=== PATIENT | female | born 1990 | race Caucasian/White ===

== ENCOUNTER 2018-06-11 07:11 | Emergency (ER) | payer MEDICAID ==
[2018-06-11] MEDS ORDERED: Ondansetron 4 MG/2 ML SDV IVPUSH ONE (07:38)
[2018-06-11] MEDS ORDERED: HYDROmorphone 0.5 MG/0.5 ML SYRINGE IVPUSH STA (07:40)
[2018-06-11] MEDS ORDERED: Sodium Chloride 0.9% 1,000 ML IV SCH (07:45)
--- NOTE | 2018-06-11 07:47 | EDM.PDOC ---
ED HPI GENERAL MEDICAL PROBLEM - General Chief Complaint: Abdominal Pain Stated Complaint: L SIDE PAIN Time Seen by Provider: 06/11/18 07:29 Source of Information: Reports: Patient History Limitations: Reports: No Limitations - History of Present Illness INITIAL COMMENTS - FREE TEXT/NARRATIVE: The patient states that she was woken up around 04:00 this morning with sharp/ throbbing left lower quadrant abdominal pain. The pain radiates up to her lower left ribs. It waxes and wanes. She has not identified any modifiers. No associated fever, chills, nausea, vomiting, constipation, diarrhea, or urinary symptoms. The patient notes that she started her menstrual period yesterday. The patient states that she had similar symptoms more than a year ago, but that they resolved after a few hours, the patient did not seek medical evaluation. 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 The patient's last oral solid food was around 21:30 last night. The patient does not have a PCP in this area. Left Lower Abdomen Pain Score (Numeric/FACES): 9 - Related Data Allergies Allergy/AdvReac Type Severity Reaction Status Date / Time avacado Allergy Facial Uncoded 06/11/18 07:28 Swelling Home Meds: Home Meds . 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: - Past Surgical History HEENT Surgical History: Reports: Oral Surgery (wisdom teeth extraction) GI Surgical History: Reports: Other (See Below) (Anal fissure repair) Female Surgical History: Reports: Section (x 1), Tubal Ligation Social & Family History - Tobacco Use Smoking Status *Q: Former Smoker Years of Tobacco use: 10 Packs/Tins Daily: 1 Month/Year Tobacco Last Used: Quit 2014 - Caffeine Use Caffeine Use: Reports: None - Alcohol Use Alcohol Use History: Yes Alcohol Use Frequency: Socially - Recreational Drug Use Recreational Drug Use: Yes Drug Use in Last 12 Months: Yes Recreational Drug Type: Reports: Marijuana/Hashish (last smoked early May 2018) - Living Situation & Occupation Living situation: Reports: Single, with Family Occupation: Unemployed ED ROS GENERAL - Review of Systems Review Of Systems: ROS reveals no pertinent complaints other than HPI. ED EXAM, GI/ABD - Physical Exam Exam: See Below Exam Limited By: No Limitations General Appearance: Alert, WD/WN, No Apparent Distress Eyes: Bilateral: Normal Appearance, EOMI Ears: Normal External Exam, Hearing Grossly Normal Nose: Normal Inspection, No Blood Throat/Mouth: Normal Inspection, Normal Lips, Normal Voice, No Airway Compromise Head: Atraumatic, Normocephalic Neck: Normal Inspection, Full Range of Motion Respiratory/Chest: No Respiratory Distress, Lungs Clear, Normal Breath Sounds, No Accessory Muscle Use Cardiovascular: Normal Peripheral Pulses, Regular Rate, Rhythm, No Edema, No Gallop, No JVD, No Murmur, No Rub GI/Abdominal Exam: Normal Bowel Sounds, Soft, No Organomegaly, No Distention, No Abnormal Bruit, No Mass, Pelvis Stable, Tender (Primarily in the left upper quadrant, less to the far left side of the abdomen and lower left quadrant. Nontender elsewhere.) (Female) Exam: Deferred Rectal (Female) Exam: Deferred Back Exam: Normal Inspection, Full Range of Motion, CVA Tenderness (L). No: CVA Tenderness (R) Extremities: Normal Inspection, Normal Range of Motion, No Pedal Edema, Normal Capillary Refill Neurological: Alert, Oriented, Normal Cognition, No Motor/Sensory Deficits Psychiatric: Normal Affect Skin Exam: Warm, Dry, Intact, Normal Color, No Rash Course - Vital Signs Last Recorded V/S: Last Vital Signs Temp 36.9 C 06/11/18 07:21 Pulse 101 H 06/11/18 07:21 Resp 16 06/11/18 07:21 BP 123/84 06/11/18 07:21 Pulse Ox 100 06/11/18 07:21 - Orders/Labs/Meds Orders: Active Orders 24 hr Category Date Time Status Abdomen Pelvis w Cont [CT] Stat Exams 06/11/18 07:38 Taken CULTURE URINE [RM] Stat Lab 06/11/18 08:15 Received HCG QUALITATIVE,URINE [URCHEM] Stat Lab 06/11/18 08:17 Ordered UA W/MICROSCOPIC [URIN] Stat Lab 06/11/18 08:15 Ordered Sodium Chloride 0.9% [Normal Saline] 1,000 ml Med 06/11/18 07:45 Active IV ASDIRECTED Sodium Chloride 0.9% [Saline Flush] Med 06/11/18 08:58 Active 10 ml FLUSH ONETIME PRN Medication Orders Sodium Chloride (Normal Saline) 1,000 mls @ 150 mls/hr IV ASDIRECTED ZAIDA Last Admin: 06/11/18 07:58 Dose: 150 mls/hr Sodium Chloride (Saline Flush) 10 ml FLUSH ONETIME PRN PRN Reason: IV FLUSH Last Admin: 06/11/18 09:08 Dose: 10 ml Labs: Laboratory Tests 06/11/18 06/11/18 06/11/18 Range/Units 07:50 07:50 08:15 WBC 8.24 (3.98-10.04) K/mm3 RBC 4.78 (3.98-5.22) M/mm3 Hgb 14.0 (11.2-15.7) gm/L Hct 42.1 (34.1-44.9) % MCV 88.1 (79.4-94.8) fl MCH 29.3 (25.6-32.2) pg MCHC 33.3 (32.2-35.5) g/dl RDW Std Deviation 45.6 (36.4-46.3) fL Plt Count 250 (182-369) K/mm3 MPV 10.7 (9.4-12.3) fl Neutrophils % (Manual) 76 H (40-60) % Band Neutrophils % 2 (0-10) % Lymphocytes % (Manual) 14 L (20-40) % Atypical Lymphs % 0 % Monocytes % (Manual) 6 (2-10) % Eosinophils % (Manual) 2 (0.7-5.8) % Basophils % (Manual) 0 L (0.1-1.2) Platelet Estimate Adequate RBC Morph Comment Normal Sodium 139 (136-145) mEq/L Potassium 3.9 (3.5-5.1) mEq/L Chloride 104 (98-107) mEq/L Carbon Dioxide 24 (21-32) mEq/L Anion Gap 14.9 (5-15) BUN 13 (7-18) mg/dL Creatinine 0.8 (0.55-1.02) mg/dL Est Cr Clr Drug Dosing TNP Estimated GFR (MDRD) > 60 (>60) mL/min BUN/Creatinine Ratio 16.3 (14-18) Glucose 102 (74-106) mg/dL Calcium 8.8 (8.5-10.1) mg/dL Total Bilirubin 0.5 (0.2-1.0) mg/dL AST 16 (15-37) U/L ALT 25 (14-59) U/L Alkaline Phosphatase 69 (46-116) U/L Total Protein 8.0 (6.4-8.2) g/dl Albumin 4.2 (3.4-5.0) g/dl Globulin 3.8 gm/dL Albumin/Globulin Ratio 1.1 (1-2) Lipase 80 (73-393) U/L Urine Color Yellow (Yellow) Urine Appearance Clear (Clear) Urine pH 6.0 (5.0-8.0) Ur Specific [place] 1.025 (1.005-1.030) Urine Protein 2+ H (Negative) Urine Glucose (UA) Negative (Negative) Urine Ketones Negative (Negative) Urine Occult Blood 3+ H (Negative) Urine Nitrite Negative (Negative) Urine Bilirubin Negative (Negative) Urine Urobilinogen 0.2 (0.2-1.0) Ur Leukocyte Esterase 1+ H (Negative) Urine RBC >100 H (0-5) /hpf Urine WBC 10-20 H (0-5) /hpf Ur Epithelial Cells 0-5 (0-5) /hpf Urine Bacteria Few (FEW) /hpf Urine Mucus Not seen (FEW) /hpf Urine HCG, Qual (NEGATIVE) 06/11/18 Range/Units 08:17 WBC (3.98-10.04) K/mm3 RBC (3.98-5.22) M/mm3 Hgb (11.2-15.7) gm/L Hct (34.1-44.9) % MCV (79.4-94.8) fl MCH (25.6-32.2) pg MCHC (32.2-35.5) g/dl RDW Std Deviation (36.4-46.3) fL Plt Count (182-369) K/mm3 MPV (9.4-12.3) fl Neutrophils % (Manual) (40-60) % Band Neutrophils % (0-10) % Lymphocytes % (Manual) (20-40) % Atypical Lymphs % % Monocytes % (Manual) (2-10) % Eosinophils % (Manual) (0.7-5.8) % Basophils % (Manual) (0.1-1.2) Platelet Estimate RBC Morph Comment Sodium (136-145) mEq/L Potassium (3.5-5.1) mEq/L Chloride (98-107) mEq/L Carbon Dioxide (21-32) mEq/L Anion Gap (5-15) BUN (7-18) mg/dL Creatinine (0.55-1.02) mg/dL Est Cr Clr Drug Dosing Estimated GFR (MDRD) (>60) mL/min BUN/Creatinine Ratio (14-18) Glucose (74-106) mg/dL Calcium (8.5-10.1) mg/dL Total Bilirubin (0.2-1.0) mg/dL AST (15-37) U/L ALT (14-59) U/L Alkaline Phosphatase (46-116) U/L Total Protein (6.4-8.2) g/dl Albumin (3.4-5.0) g/dl Globulin gm/dL Albumin/Globulin Ratio (1-2) Lipase (73-393) U/L Urine Color (Yellow) Urine Appearance (Clear) Urine pH (5.0-8.0) Ur Specific [place] (1.005-1.030) Urine Protein (Negative) Urine Glucose (UA) (Negative) Urine Ketones (Negative) Urine Occult Blood (Negative) Urine Nitrite (Negative) Urine Bilirubin (Negative) Urine Urobilinogen (0.2-1.0) Ur Leukocyte Esterase (Negative) Urine RBC (0-5) /hpf Urine WBC (0-5) /hpf Ur Epithelial Cells (0-5) /hpf Urine Bacteria (FEW) /hpf Urine Mucus (FEW) /hpf Urine HCG, Qual Negative (NEGATIVE) Meds: Medications Generic Name Dose Route Start Last Admin Trade Name Freq PRN Reason Stop Dose Admin Sodium Chloride 1,000 mls @ 150 mls/hr 06/11/18 07:45 06/11/18 07:58 Normal Saline IV 150 mls/hr ASDIRECTED ZAIDA Administration Sodium Chloride 10 ml 06/11/18 08:58 06/11/18 09:08 Saline Flush FLUSH 10 ml ONETIME PRN Administration IV FLUSH Discontinued Medications Generic Name Dose Route Start Last Admin Trade Name Freq PRN Reason Stop Dose Admin Diatrizoate Meglum/Diatrizoate Sod 120 ml 06/11/18 08:58 06/11/18 09:08 Gastrografin 37% PO 06/11/18 08:59 90 ml ONETIME ONE Administration Hydromorphone HCl 0.5 mg 06/11/18 07:40 06/11/18 07:59 Dilaudid IVPUSH 06/11/18 07:41 0.5 mg ONETIME STA Administration Iopamidol 100 ml 06/11/18 08:58 06/11/18 09:07 Isovue-300 (61%) IVPUSH 06/11/18 08:59 100 ml ONETIME ONE Administration Ondansetron HCl 4 mg 06/11/18 07:38 06/11/18 07:58 Zofran IVPUSH 06/11/18 07:39 4 mg ONETIME ONE Administration - Re-Assessments/Exams Free Text/Narrative Re-Assessment/Exam: 06/11/18 08:48 The patient's urinalysis is remarkable for 3+ occult blood and >100 RBCs, 1+ leukocyte esterase and 10-20 WBCs, and a few bacteria. This is consistent with the patient being on her menstrual period, and not consistent with a UTI. I have ordered a urine culture, but I am not going to start empiric antibiotics at this time. 06/11/18 10:32 CT of the abdomen and pelvis with oral and IV contrast is read by [facility] as "No acute process" Departure - Departure Time of Disposition: 10:43 Disposition: Home, Self-Care 01 Condition: Good Clinical Impression: Abdominal pain of unknown etiology - Discharge Information *PRESCRIPTION DRUG MONITORING PROGRAM REVIEWED*: Not Applicable *COPY OF PRESCRIPTION DRUG MONITORING REPORT IN PATIENT GRACIA: Not Applicable Referrals: PCP,None [Primary Care Provider] - Romina Price MD [Physician] - Forms: ED Department Discharge Additional Instructions: You were seen in the emergency room for sharp/throbbing left-sided abdominal pain. Workup in the ER included blood work, a urinalysis, a urine test, and a CT scan of your abdomen and pelvis. Your urinalysis returned mildly abnormal, but not consistent with a urinary tract infection. A urine culture was sent. If the culture returns positive, you will be contacted. The remainder of your workup was entirely normal, and does not explain the cause of your symptoms. We recommend that you take [id number] Tylenol or ibuprofen as needed for discomfort. Follow-up with Dr. Romina Price as a primary care physician, at the next available appointment. If any other problems, please do not hesitate to return to the ER. - My Orders Last 24 Hours: My Active Orders 06/11/18 07:38 Abdomen Pelvis w Cont [CT] Stat 06/11/18 07:45 Sodium Chloride 0.9% [Normal Saline] 1,000 ml IV ASDIRECTED 06/11/18 08:15 CULTURE URINE [RM] Stat UA W/MICROSCOPIC [URIN] Stat 06/11/18 08:17 HCG QUALITATIVE,URINE [URCHEM] Stat 06/11/18 08:58 Sodium Chloride 0.9% [Saline Flush] 10 ml FLUSH ONETIME PRN - Assessment/Plan Last 24 Hours: My Active Orders 06/11/18 07:38 Abdomen Pelvis w Cont [CT] Stat 06/11/18 07:45 Sodium Chloride 0.9% [Normal Saline] 1,000 ml IV ASDIRECTED 06/11/18 08:15 CULTURE URINE [RM] Stat UA W/MICROSCOPIC [URIN] Stat 06/11/18 08:17 HCG QUALITATIVE,URINE [URCHEM] Stat 06/11/18 08:58 Sodium Chloride 0.9% [Saline Flush] 10 ml FLUSH ONETIME PRN
[2018-06-11] MEDS ORDERED: Sodium Chloride 0.9% 10 ML Syringe FLUSH PRN (08:58)
[2018-06-11] MEDS ORDERED: Diatrizoate Meglumine/Diatrizoate Sodium 37% 120 ML Bottle PO ONE (08:58)
[2018-06-11] MEDS ORDERED: Iopamidol 612 MG/ML 100 ML Bottle IVPUSH ONE (08:58)
--- NOTE | 2018-06-13 19:39 | CT ---
CT abdomen and pelvis Technique: Multiple axial sections were obtained from above the dome of the diaphragm inferiorly through the pubic symphysis. Intravenous and oral contrast was utilized. Delayed images were obtained through the bladder. Comparison: No prior abdominal imaging. Findings: Visualized lung bases show nothing acute. Liver shows no focal parenchymal abnormality. Spleen appears within normal limits. Right adrenal gland is normal. Left adrenal gland shows a small nodule within the tirso measuring about 5 mm which is felt to be incidental. Pancreas is normal. Gallbladder contains no calcified gallstones. Kidneys show symmetric contrast enhancement without hydronephrosis. Aorta shows no aneurysmal dilatation. No retroperitoneal adenopathy is seen. No pelvic mass or adenopathy is seen. No mesenteric abnormalities are seen. Appendix is seen which is normal in size. Delayed images show contrast within the distal ureters and bladder. Bone window settings were reviewed which appear within normal limits for the patient's age. Impression: 1. Incidental findings. Nothing acute seen on CT study of the abdomen and pelvis. Diagnostic code #2 I agree with preliminary report issued by [facility] ([facility] report finalized on 06/11/18, 11:11 AM Central Time)
== END 2018-06-11 11:05 | disposition home or self-care (01) ==
LOC: JD.ED 07:11
DX: R10.32 Left lower quadrant pain (principal); Z91.018 Allergy to other foods; Z87.891 Personal history of nicotine dependence
CPT/HCPCS: 36415; 74177; 80053; 81001; 81025; 83690; 85007; 85027; 87086; 87088; 87186; 96361; 96374; 96375; 99284; J1170; J2405; J7040; J7050; Q9963; Q9967

== ENCOUNTER 2020-11-13 18:09 | Emergency (ER) | payer BC, MEDICAID ==
--- NOTE | 2020-11-13 18:47 | EDM.PDOC ---
<Jackie Kyle - Last Filed: 11/13/20 18:40> ED HPI GENERAL MEDICAL PROBLEM - General Chief Complaint: Lower Extremity Injury/Pain Stated Complaint: POSS LEG BREAK Time Seen by Provider: 11/13/20 18:35 Source of Information: Reports: Patient History Limitations: Reports: No Limitations - History of Present Illness INITIAL COMMENTS - FREE TEXT/NARRATIVE: Negra is a 30 year old female presenting to the ED with complaints of left ankle pain. She states she was outside looking for her dog when she slipped and fell on the ice and heard a popping sound then felt like her ankle was "dangling." This happened approximately 30-45 minutes ago. She underwent bunion surgery two weeks ago and was wearing a walking boot at the time. She is unable to bear any weight on ankle and was wheeled to the room in a wheel chair. She describes the pain as burning and throbbing and is made worse by ambulating, laying flat and any movement. Sitting upright makes the pain better. She states the pain radiates around the to the posterior aspect of her ankle from the lateral malleolus. 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: Psychiatric History: Reports: Depression Endocrine/Metabolic History: Reports: Hypothyroidism, Obesity/BMI 30+ - Past Surgical History HEENT Surgical History: Reports: Oral Surgery GI Surgical History: Reports: Other (See Below) Other GI Surgeries/Procedures: anal fissure repair Female Surgical History: Reports: Section, Tubal Ligation Musculoskeletal Surgical History: Reports: Other (See Below) Other Musculoskeletal Surgeries/Procedures:: L) Bunionectomy Social & Family History - Tobacco Use Tobacco Use Status *Q: Never Tobacco User - Caffeine Use Caffeine Use: Reports: Coffee - Recreational Drug Use Recreational Drug Use: No - Living Situation & Occupation Living situation: Reports: Single, with Family Occupation: Unemployed Review of Systems - Review of Systems Review Of Systems: Comprehensive ROS is negative, except as noted in HPI. Constitutional: Reports: No Symptoms Eyes: Reports: No Symptoms Ears: Reports: No Symptoms Nose: Reports: No Symptoms Mouth/Throat: Reports: No Symptoms Respiratory: Reports: No Symptoms Cardiovascular: Reports: No Symptoms GI/Abdominal: Reports: No Symptoms Genitourinary: Reports: No Symptoms Musculoskeletal: Reports: Joint Pain (Severe left lateral ankle pain ) Skin: Reports: No Symptoms Neurological: Reports: No Symptoms Psychiatric: Reports: No Symptoms ED EXAM, GENERAL - Physical Exam Exam: See Below Exam Limited By: No Limitations General Appearance: Alert, WD/WN, Mild Distress (due to severe pain ) Ears: Normal External Exam, Normal Canal, Hearing Grossly Normal Head: Atraumatic, Normocephalic Neck: Normal Inspection, Supple, Non-Tender, Full Range of Motion Respiratory/Chest: No Respiratory Distress, Lungs Clear, Normal Breath Sounds, No Accessory Muscle Use, Chest Non-Tender Cardiovascular: Normal Peripheral Pulses, Regular Rate, Rhythm, No Edema, No Gallop, No JVD, No Murmur, No Rub GI/Abdominal: Normal Bowel Sounds, Soft, Non-Tender, No Organomegaly, No Distention, No Abnormal Bruit, No Mass Back Exam: Normal Inspection, Full Range of Motion, NT Extremities: Limited Range of Motion, Other (Exquisitely tender to palpation of left ankle. There is a moderate amount of edema surrounding the left lateral malleolus. Patient is unable to wear weight and has little range of motion. ) Neurological: Alert, Oriented, CN II-XII Intact, Normal Cognition Psychiatric: Normal Affect, Normal Mood Course - Re-Assessments/Exams Free Text/Narrative Re-Assessment/Exam: 11/13/20 18:50 Negra is a 30 year old female presenting to the ED with left ankle pain. She slipped on the ice while looking for her dog roughly 30-45 minutes ago. She is unable to bear any weight on her left ankle and was unable to ambulate back to the exam room. She is in severe pain and is requesting something mild as the Percocet she got from her bunion surgery didn't sit well with her. I will order Toradol for the pain. We will get ankle and foot xrays to determine if there is a fracture. Departure - Departure Disposition: Home, Self-Care 01 Clinical Impression: Fracture of distal end of fibula Qualifiers: Encounter type: initial encounter Fracture type: closed Fracture morphology: unspecified fracture morphology Laterality: left Qualified Code(s): S82.832A - Other fracture of upper and lower end of left fibula, initial encounter for closed fracture - Discharge Information Prescriptions: Acetaminophen/oxyCODONE [Percocet 325-5 MG] 1 each PO Q6H PRN #20 tab PRN Reason: Pain Ondansetron [Zofran ODT] 4 mg PO Q8H PRN #15 tab.dis PRN Reason: Nausea Instructions: Nondisplaced Fibular Ankle Fracture Treated With Immobilization, Adult Referrals: Twila Vargas NP [Primary Care Provider] - Forms: ED Department Discharge Additional Instructions: You have been evaluated in the ED for your left toe/foot injury. Your x-ray demonstrated that you do have a fracture of your distal fibula, this is a smaller bone located in your left leg. Treatment for this will be immobilization with an orthopedic walking boot and nonweightbearing with crutches. If you are having issues ambulating with the crutches, I highly recommend that you obtain a orthopedic knee scooter for further ambulation purposes. These are for sale at [facility], they are located in the [address] aisle. Please use ice as tolerated to the affected area. You may elevate the affected area to provide further relief from swelling. You may take Tylenol 500 mg or ibuprofen 600mg q6 hrs for pain relief. Please do so until you have a tolerable level of pain with activity. Do not exceed 4000mg Tylenol, Do not exceed 3200mg ibuprofen in a 24 hour time period. You were given a prescription for a strong pain medication, oxy codone/acetaminophen 5/325, please take 1 tab every 6 hours as needed for pain not relieved by Tylenol or ibuprofen alone. Please note this does contain Tylenol in it, so do not take more than 4000 mg in a 24-hour time span. These medications can be addictive, so please take as few as possible to achieve adequate pain control. These meds can also be quite constipating, recommend that you increase your oral fluid intake and take a stool softener like MiraLAX while taking these medications. You were also given a prescription for Zofran, 1 tablet dissolvable under your tongue every 8 hours as needed for further nausea. If you need to take the Percocet, and these medications make you nauseous I recommend you take the Zofran about 15 minutes before taking the pain medication. Please call Ortho for follow-up and further evaluation Dr. Will is our orthopedic surgeon, his office number is [phone]. Please call and set up an appointment as soon as possible for further management. Please return to ED if your symptoms should change or worsen. Sepsis Event Note (ED) - Evaluation Sepsis Screening Result: No Definite Risk <Trish Sumner V - Last Filed: 11/13/20 19:33> Course - Vital Signs Last Recorded V/S: Last Vital Signs Temp 97.4 F 11/13/20 18:17 Pulse 95 11/13/20 18:17 Resp 16 11/13/20 18:17 BP 124/88 11/13/20 18:17 Pulse Ox 100 11/13/20 18:17 - Orders/Labs/Meds Orders: Active Orders 24 hr Category Date Time Status Ankle Min 3V Lt [CR] Stat Exams 11/13/20 18:45 Taken Foot Comp Min 3V Lt [CR] Stat Exams 11/13/20 18:45 Taken DME for Discharge [COMM] Routine Oth 11/13/20 19:09 Ordered Meds: Medications Discontinued Medications Generic Name Dose Route Start Last Admin Trade Name Moris PRN Reason Stop Dose Admin Ketorolac Tromethamine 60 mg 11/13/20 18:51 11/13/20 19:08 Toradol IM 11/13/20 18:52 60 mg ONETIME ONE Administration - Re-Assessments/Exams Free Text/Narrative Re-Assessment/Exam: 11/13/20 18:56 I have read and reviewed the student's HPI and examined the patient and agree with BAMBI Cerda-student. 11/13/20 19:08 Patient has a nondisplaced distal fibular fracture. We will place her in a orthopedic walking boot however we will tell her that she will need to stay nonweightbearing and provided with crutches, she can get an orthopedic knee cart if she would desire to do so. Departure - Departure Time of Disposition: 19:31 Condition: Good - Discharge Information *PRESCRIPTION DRUG MONITORING PROGRAM REVIEWED*: Yes *COPY OF PRESCRIPTION DRUG MONITORING REPORT IN PATIENT GRACIA: No Sepsis Event Note (ED) - Focused Exam Vital Signs: Vital Signs Temp Pulse Resp BP Pulse Ox 11/13/20 18:17 97.4 F 95 16 124/88 100 - My Orders Last 24 Hours: My Active Orders 11/13/20 18:45 Ankle Min 3V Lt [CR] Stat Foot Comp Min 3V Lt [CR] Stat 11/13/20 19:09 DME for Discharge [COMM] Routine - Assessment/Plan Last 24 Hours: My Active Orders 11/13/20 18:45 Ankle Min 3V Lt [CR] Stat Foot Comp Min 3V Lt [CR] Stat 11/13/20 19:09 DME for Discharge [COMM] Routine
[2020-11-13] MEDS ORDERED: Ketorolac 60 MG/2 ML SDV IM ONE (18:51)
--- NOTE | 2020-11-14 08:47 | CR ---
Left ankle: 4 views of the left ankle were obtained. Comparison: No previous ankle study, foot exam performed on the same day is available. Nondisplaced fracture is noted within the lateral malleolus. Soft tissue swelling is seen. Ankle mortise is symmetric. No additional fracture or other abnormality is appreciated. Impression: 1. Nondisplaced lateral malleolus fracture with adjacent soft tissue swelling. 2. No additional abnormality is identified. Diagnostic code #3
--- NOTE | 2020-11-14 08:47 | CR ---
Left foot: 4 views of the left foot were obtained. Comparison: No prior foot exam is available. Previous surgery is noted within the distal first metatarsal with [address] This causes widening of the MTP joint which is postsurgical. Joint spaces are otherwise maintained. Oblique fracture is noted within the distal fibula. No additional fracture or other bony abnormality is appreciated. Impression: 1. Fracture within the distal fibula. 2. Previous surgery. 3. No additional abnormality is appreciated on left foot exam. Note: If patient remains symptomatic, follow-up study is then recommended in 10-14 days. Diagnostic code #3
== END 2020-11-13 19:52 | disposition home or self-care (01) ==
LOC: JD.ED 18:09
DX: S82.822A Torus fracture of lower end of left fibula, initial encounter for closed fracture (principal); E66.9 Obesity, unspecified; Z68.35 Body mass index [BMI] 35.0-35.9, adult; Z91.018 Allergy to other foods; W00.0XXA Fall on same level due to ice and snow, initial encounter
CPT/HCPCS: 73610; 73630; 96372; 99283; J1885

== ENCOUNTER 2024-05-28 18:35 | Emergency (ER) | payer BC ==
[2024-05-28] MEDS: Diphtheria,Pertussis(Acell),Tetanus Vaccine 0.5 ML Syringe IM ONE (20:06)
[2024-05-28] MEDS: Lidocaine 1% 10 ML MDV INJECT ONE (20:06)
== END 2024-05-28 20:15 | disposition home or self-care (01) ==
LOC: JD.ED 18:35
DX: S60.454A Superficial foreign body of right ring finger, initial encounter (principal); Z91.018 Allergy to other foods; Z79.899 Other long term (current) drug therapy; Z23 Encounter for immunization; W45.8XXA Other foreign body or object entering through skin, initial encounter
CPT/HCPCS: 90471; 90715; 99283-25; J3490